=== PATIENT | female | born 1950 | race Caucasian/White ===

== ENCOUNTER 2020-04-26 09:44 | Outpatient (CLI) | payer MEDICARE, SELFPAY ==
--- NOTE | 2020-04-26 09:51 | MM_ITS ---
WS: [id number] SCREENING DIGITAL MAMMOGRAM WITH CAD HISTORY: SCREENING COMPARISON: 04/20/2019 and 04/14/2018 Bilateral CC and MLO views submitted. Computer aided detection analyzed. Breast composition: There are scattered areas of fibroglandular density. No suspicious masses, microc alcifications or architectural distortion. MM/[id number] IMPRESSION: BI-RADS: 1-Negative FOLLOW UP: 1 Year Follow-up
== END 2020-04-26 09:45 | disposition home or self-care (01) ==
PROVIDERS: PCP Nurse Practitioner Family; Visit Provider Nurse Practitioner Family
DX: Z12.31 Encounter for screening mammogram for malignant neoplasm of breast (principal)
CPT/HCPCS: 77067

== ENCOUNTER 2021-03-28 11:21 | Outpatient (CLI) | payer MEDICARE, SELFPAY ==
--- NOTE | 2021-03-28 11:29 | XR_ITS ---
WS: [id number] Bone mineral density performed on a [employer], today Clinical data: POST MENOPAUSAL Findings: The first 4 lumbar vertebral bodies demonstrated the bone mineral density of 1.293 g/cm2 for a young adult T score of 0.9. Measurement of the left hip reveals a bone mineral density of 1.052 g/cm2 with a young adult T score of 0.3. Measurement of the right hip reveals the bone mineral density of 1.111 g/cm2 for young adult T score of 0.8. XR/XR DEXA axial skeleton* [id number] Impression: Normal bone mineral density of the lumbar spine and both hips.
== END 2021-03-28 11:22 | disposition home or self-care (01) ==
LOC: RADWPI 11:27
PROVIDERS: PCP Nurse Practitioner Family; Visit Provider Nurse Practitioner Family
DX: Z78.0 Asymptomatic menopausal state (principal)
CPT/HCPCS: 77080

== ENCOUNTER 2021-05-29 08:13 | Outpatient (CLI) | payer MEDICARE, SELFPAY ==
--- NOTE | 2021-05-29 08:18 | MM_ITS ---
WS: [id number] BILATERAL DIGITAL SCREENING MAMMOGRAPHY WITH CAD CLINICAL INFORMATION: SCREENING HISTORY: Screening mammogram. No current complaints. COMPARISON: April 26, 2020 TECHNIQUE: Bilateral CC and MLO views. FINDINGS: The breasts are composed of heterogeneous fibroglandular density tissue, which can limit the detectio n of small underlying mass lesions. Punctate calcifications. Vascular calcification. No suspicious ma ss, asymmetry, calcifications, or architectural distortion. No evidence of malignancy. MM/[id number] IMPRESSION: BI-RADS: 2-Benign FOLLOW UP: 1 Year Follow-up Recommend return to annual screening mammography.
== END 2021-05-29 08:14 | disposition home or self-care (01) ==
PROVIDERS: PCP Nurse Practitioner Family; Visit Provider Nurse Practitioner Family
DX: Z12.31 Encounter for screening mammogram for malignant neoplasm of breast (principal)
CPT/HCPCS: 77067

== ENCOUNTER 2022-06-03 11:04 | Outpatient (CLI) | payer MEDICARE, SELFPAY ==
--- NOTE | 2022-06-03 11:19 | MM_ITS ---
WS: [id number] SCREENING DIGITAL TOMOSYNTHESIS MAMMOGRAM WITH CAD HISTORY: SCREENING COMPARISON: 05/29/2021 and 04/26/2020 Bilateral CC and MLO with tomosynthesis views submitted. Synthetic mammography reviewed. Computer aid ed detection analyzed. Breast composition: There are scattered areas of fibroglandular density. No suspicious masses, microc alcifications or architectural distortion. MM/[id number] IMPRESSION: BI-RADS: 1-Negative FOLLOW UP: 1 Year Follow-up
== END 2022-06-03 11:05 | disposition home or self-care (01) ==
LOC: RAD 11:04
PROVIDERS: PCP Nurse Practitioner Family; Visit Provider Nurse Practitioner Family
DX: Z12.31 Encounter for screening mammogram for malignant neoplasm of breast (principal)
CPT/HCPCS: 77063; 77067

== ENCOUNTER 2023-06-04 12:08 | Outpatient (CLI) | payer MEDICARE, SELFPAY ==
--- NOTE | 2023-06-04 12:16 | XR_ITS ---
WS: [id number] DEXA (DUAL ENERGY X-RAY ABSORPTIOMETRY) Bone mineral density was performed using a [employer] machine. HISTORY: POSTMENOPAUSAL COMPARISON: 03/28/2021 Lumbar spine BMD (L1-L4): 1.305 g/cm2 T score: 1.0 Z score: 2.1 Total hip BMD: Left: 0.990 g/cm2. T score: -0.1 Z score: 1.1 Right: 1.060 g/cm2. T score: 0.4 Z score: 1.7 10 year probability of a major osteoporotic fracture is 17% Compared to the prior study from 03/28/2021. Lumbar spine bone mineral density has increased by 0.9%. Bilateral hips bone mineral density has decreased by 4.6%. IMPRESSION: NORMAL BONE MINERAL DENSITY based upon the WHO classification for females. Mild decrease in bone mineral density within the hip since prior study.
== END 2023-06-04 12:09 | disposition home or self-care (01) ==
PROVIDERS: PCP Nurse Practitioner Family; Visit Provider Nurse Practitioner Family
DX: Z78.0 Asymptomatic menopausal state (principal)
CPT/HCPCS: 77080

== ENCOUNTER 2023-06-10 10:01 | Outpatient (CLI) | payer MEDICARE, SELFPAY ==
--- NOTE | 2023-06-10 10:10 | MM_ITS ---
WS: [id number] BILATERAL SCREENING DIGITAL TOMOSYNTHESIS MAMMOGRAM WITH CAD HISTORY: SCREENING COMPARISON: 06/03/2022 and 05/29/2021 Bilateral CC and MLO views with tomosynthesis and synthetic mammography submitted. Computer aided det ection analyzed. Breast composition: The breasts are heterogeneously dense, which may obscure small masses. No suspici ous masses, microcalcifications or architectural distortion. IMPRESSION: MM/[place] [id number] BI-RADS: 1-Negative FOLLOW UP: 1 Year Follow-up
== END 2023-06-10 10:02 | disposition home or self-care (01) ==
PROVIDERS: PCP Nurse Practitioner Family; Visit Provider Nurse Practitioner Family
DX: Z12.31 Encounter for screening mammogram for malignant neoplasm of breast (principal)
CPT/HCPCS: 77063; 77067

== ENCOUNTER 2023-12-01 06:44 | Outpatient (CLI) | payer MEDICARE, SELFPAY ==
--- NOTE | 2023-12-01 07:10 | MR_ITS ---
WS: [id number] MRI LUMBAR SPINE NONCONTRAST HISTORY: BILATERAL LEG PAIN COMPARISON: None available. TECHNIQUE: Sagittal and axial multisequence imaging is submitted. Mild increased T2 signal at C6 may be a hemangioma. T1 anterolisthesis by 4 mm. Disc spaces are narro wed in the thoracic and cervical spines. Mild increase in the lumbar lordosis. L4 anterolisthesis by 3 mm. No fractures or marrow edema. Disc bases are mildly desiccated and narrowed. Conus terminates normally at L1-2 disc level. L1-L2: Mild annular disc bulging. Bilateral ligamentum flavum and facet arthritis. Mild central, bila teral subarticular recess and moderate foraminal stenosis. L2-L3: Diffuse annular disc bulging asymmetric to the LEFT. Moderate facet and ligamentum flavum hype rtrophy. Severe central, bilateral subarticular recess and LEFT foraminal stenosis. Mild RIGHT forami nal stenosis. L3-L4: Mild annular disc bulging with facet and ligamentum flavum hypertrophy. Moderate to severe kaylee tral, bilateral subarticular recess and foraminal stenosis. L4-L5: Marked annular disc bulging, severe ligamentum flavum and facet arthritis. Severe central, mar ateral subarticular recess and foraminal stenosis. There is significant contact on the L4 and L5 nerv e roots. L5-S1: Mild annular disc bulging with moderate facet arthritis. Very mild central stenosis. Disc encr oachment upon the S1 nerve roots. Moderate bilateral foraminal stenosis. Disc and osteophyte contact on the L5 nerve roots. Paravertebral soft tissues are normal. IMPRESSION: 1. 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 2. L2-3: Severe central, bilateral subarticular recess and LEFT foraminal stenosis. Mild RIGHT cindy inal stenosis. 3. L3-4: Moderate to severe central, bilateral subarticular recess and foraminal stenosis. 4. L4-5: Severe central, bilateral subarticular recess and foraminal stenosis. 5. L5-S1: Moderate bilateral foraminal stenosis. 6. T1 anterolisthesis by 4 mm.
== END 2023-12-01 06:45 | disposition home or self-care (01) ==
LOC: RAD 06:44
PROVIDERS: PCP Nurse Practitioner Family; Visit Provider Nurse Practitioner Family
DX: M48.07 Spinal stenosis, lumbosacral region (principal); M47.817 Spondylosis without myelopathy or radiculopathy, lumbosacral region
CPT/HCPCS: 72148

== ENCOUNTER → 2023-12-16 10:19 | Outpatient (BNVA) | payer MEDICARE, SELFPAY | PROVIDERS: PCP Nurse Practitioner Family; Referring Provider Nurse Practitioner Family; Visit Provider Orthopaedic Surgery | DX: M43.16 Spondylolisthesis, lumbar region (principal); M54.50 Low back pain, unspecified | CPT/HCPCS: 72110; 99204 ==

== ENCOUNTER → 2024-01-20 10:01 | Outpatient (BNVA) | payer MEDICARE, SELFPAY | PROVIDERS: PCP Nurse Practitioner Family; Visit Provider Anesthesiology Pain Medicine | DX: M51.17 Intervertebral disc disorders with radiculopathy, lumbosacral region (principal); M43.16 Spondylolisthesis, lumbar region; M51.16 Intervertebral disc disorders with radiculopathy, lumbar region | CPT/HCPCS: 99204 ==

== ENCOUNTER 2024-06-13 08:54 | Outpatient (CLI) | payer MEDICARE, SELFPAY ==
--- NOTE | 2024-06-13 09:00 | MM_ITS ---
WS: [id number] BILATERAL 3D TOMOSYNTHESIS DIGITAL SCREENING MAMMOGRAPHY WITH CAD CLINICAL INFORMATION: SCREENING HISTORY: Screening mammogram. No current complaints. COMPARISON: 2022 TECHNIQUE: Bilateral CC and MLO views. FINDINGS: The breasts are composed of heterogeneous fibroglandular density tissue, which can limit the detectio n of small underlying mass lesions. No suspicious mass, asymmetry, calcifications, or architectural d istortion. No evidence of malignancy. A few incidental punctate calcifications. Vascular calcificatio ns. MM/MM [facility] tomosynthesis [id number] IMPRESSION: DENSITY: The breasts are heterogeneously dense, which may obscure small masses. BI-RADS: 2 - Benign FOLLOW UP: 1 Year Follow-up Recommend return to annual screening mammography.
== END 2024-06-13 08:55 | disposition home or self-care (01) ==
LOC: RAD 08:54
PROVIDERS: PCP Nurse Practitioner Family; Visit Provider Nurse Practitioner Family
DX: Z12.31 Encounter for screening mammogram for malignant neoplasm of breast (principal); R92.333 Mammographic heterogeneous density, bilateral breasts; R92.1 Mammographic calcification found on diagnostic imaging of breast
CPT/HCPCS: 77063; 77067

== ENCOUNTER 2025-06-14 09:47 | Outpatient (CLI) | payer MEDICARE, SELFPAY ==
--- NOTE | 2025-06-14 09:55 | MM_ITS ---
WS: [id number] BILATERAL SCREENING DIGITAL TOMOSYNTHESIS MAMMOGRAM WITH CAD HISTORY: ANNUAL SCREEN COMPARISON: 06/13/2024, 06/10/2023, 06/03/2022 Bilateral CC and MLO views with tomosynthesis and synthetic mammography submitted. Computer aided detection analyzed. Breast composition: The breasts are heterogeneously dense, which may obscure small masses. No suspicious masses, microcalcifications or architectural distortion. Benign calcifications in each breast. MM/MM scr tomosynthesis [id number] IMPRESSION: BI-RADS: 2 - Benign FOLLOW UP: 1 Year Follow-up
== END 2025-06-14 09:48 | disposition home or self-care (01) ==
LOC: RAD 09:48
PROVIDERS: PCP Nurse Practitioner Family; Visit Provider Nurse Practitioner Family
DX: Z12.31 Encounter for screening mammogram for malignant neoplasm of breast (principal); R92.333 Mammographic heterogeneous density, bilateral breasts
CPT/HCPCS: 77063; 77067